=== PATIENT | male | born 1985 | race Caucasian/White ===

== ENCOUNTER → 2019-03-11 | Outpatient (CLI) | payer BC ==
--- NOTE | 2019-03-11 14:04 | RAD ---
EXAM: Right elbow, 3 views; left knee, 2 views. HISTORY: Pain. COMPARISON: None. FINDINGS: Right elbow: 2 views of the elbow are obtained. There is no fracture, dislocation or subluxation. There is a bone island within the distal humeral metaphysis. There is no joint effusion. Left knee: 2 views of the left knee are obtained. There is no fracture, dislocation or subluxation. There is no joint effusion. IMPRESSION: No acute osseous finding. Electronically signed by: Ghislaine Perez MD (03/11/2019 2:01 PM) [facility]
--- NOTE | 2019-03-11 14:04 | RAD ---
EXAM: Right elbow, 3 views; left knee, 2 views. HISTORY: Pain. COMPARISON: None. FINDINGS: Right elbow: 2 views of the elbow are obtained. There is no fracture, dislocation or subluxation. There is a bone island within the distal humeral metaphysis. There is no joint effusion. Left knee: 2 views of the left knee are obtained. There is no fracture, dislocation or subluxation. There is no joint effusion. IMPRESSION: No acute osseous finding. Electronically signed by: Ghislaine Perez MD (03/11/2019 2:01 PM) [facility]
== END | disposition home or self-care (01) ==
LOC: DXRAD 10:54
PROVIDERS: ATTEND Physician Assistant Medical
DX: M25.521 Pain in right elbow (principal); M25.562 Pain in left knee
CPT/HCPCS: 73070; 73560

== ENCOUNTER → 2021-01-09 | Outpatient (CLI) | payer BC ==
--- NOTE | 2021-01-09 11:35 | RAD ---
EXAM: Chest, 2 views. HISTORY: Upper respiratory infection. COMPARISON: None. FINDINGS: 2 views of the chest are obtained. There is no infiltrate, pleural effusion or pneumothorax . The heart is normal in size. IMPRESSION: No acute pulmonary finding. Electronically signed by: Ghislaine Perez MD (01/09/2021 11:32 AM) [id number]
== END ==
LOC: PMG 11:12
PROVIDERS: ATTEND Nurse Practitioner Family
DX: J06.9 Acute upper respiratory infection, unspecified (principal)
CPT/HCPCS: 71046